=== PATIENT | female | born 1965 | race Caucasian/White ===

== ENCOUNTER 2019-05-13 21:13 | Inpatient (IN) | payer OTHER ==
[~2019-05-13] VITALS: Ht 175.3 cm; Wt 90.7 kg
--- NOTE | ~2019-05-13 | CON ---
[address] [address] CONSULTATION Name: LULY LAKHANI Room: [address] IN .R.#: [id number] Admission: 05/13/19 Attend Phys: Jo Cardenas MD Discharge: Date of : 69 Report #: [id number] THIS REPORT FOR: //name// CC: [facility] physician/PCP Jo Cardenas DATE OF SERVICE: 05/14/2019 INFECTIOUS DISEASE CONSULTATION ATTENDING PHYSICIAN: Jo Cardenas MD REASON FOR EVALUATION: Right lower extremity venous stasis insufficiency complicated by dermatitis ulcer, now with skin and soft tissue infection with cellulitis. HISTORY OF PRESENT ILLNESS: Chart reviewed, patient examined. This is a 53-year-old known history of illicit drug use, who developed a small lesion over the medial aspect proximal to the malleolus involving the right lower extremity, developed an area. She has an increase in size and depth ulcerated, was associated with significant amount of pain. She denies any antecedent injury. She has not had previous similar type episodes. Notes varicose veins, does intermittently wear compression. Urinalysis was otherwise unremarkable. Lactic acid 1.1. Positive drug screen for methamphetamine. Imaging of the tibia fibula was otherwise unremarkable for any bony changes. She is empirically started on therapy with ceftriaxone and vancomycin. ALLERGIES: LISTED TO AMOXICILLIN AND SULFA, BOTH WHICH SHE STATES CAUSES RASHES. CURRENT MEDICATIONS: Include enoxaparin, vancomycin, famotidine, ibuprofen, ondansetron, tramadol, lorazepam, ceftriaxone, ketorolac. PAST MEDICAL HISTORY: Previous hysterectomy and laparoscopic evaluation for lysis of adhesions. SOCIAL HISTORY: No illicit drug use. Smokes half pack a day for 30 years. No history of significant ethanol use. FAMILY HISTORY: Noncontributory. REVIEW OF SYSTEMS: Denies significant pulmonary or gastrointestinal related complaints. She has had minor anorexia. She did have shaking chills, as well. Otherwise, unremarkable 10-point [place] [address] CONSULTATION Name: LULY LAKHANI Room: [address] IN [facility]#: [id number] Admission: 05/13/19 Attend Phys: Jo Cardenas MD Discharge: Date of : 69 Report #: [id number] PHYSICAL EXAMINATION: GENERAL: Appears somewhat chronically ill, undernourished. She is in distress, [id number] degree. VITAL SIGNS: Temperature 98.8, pulse 77, respirations 18, blood pressure 120/78. SKIN: Warm. HEENT: Normocephalic. Extraocular muscles intact. NECK: Supple. LUNGS: Clear to auscultation. Somewhat diminished. HEART: Regular rhythm. I do not appreciate murmur. ABDOMEN: Soft, mildly obese, nontender. There are no peritoneal signs. EXTREMITIES: Right lower extremity medial aspect, distal pretibial site proximal to the malleolus has an ulceration that extends into the subcutaneous tissue. There is moderate degree of inflammation noted. There is no particular odor, no purulence. It is quite tender. Distal pulses are palpable. GENITOURINARY AND RECTAL: Deferred. LABORATORY DATA: CBC: White count of 4.9, H and H 11.7 and 34.8, platelets of 295. Differential unremarkable. Urinalysis unremarkable. Electrolytes: Sodium 140, potassium 3.5, chloride 104, bicarbonate is 31, anion gap of 5, BUN and creatinine 12 and 0.9, glucose of 158. AST of 13, ALT of 21. Albumin of 3.1, total protein of 8.5. Lactic acid 1.1. Drug screen positive for amphetamine, methamphetamine. ASSESSMENT: Right lower extremity inflammatory eruption, likely multifactorial. I think she does have a component of venous stasis insufficiency, dermatitis and now a new onset ulcer, likely secondarily infected. We will continue empiric therapy, presuming skin related. We will try to culture the wound and add compression. Continue elevation as directed. By: [id number] Noriega MD /nt
[2019-05-13 10:45] VITALS: BP 139/82
[~2019-05-13 21:13] MED LIST: ALAVERT10 MG PO; COLACE 100 MG100 MG PO; CYMBALTA30 MG PO; CYMBALTA60 MG PO; FLONASE; HYDROCODON-ACE1 EAC8 PO; METHADONE HCL5 MG PO; VENTOLIN HFA INH8 GM IH
[2019-05-13 21:18] VITALS: BP 143/88
[2019-05-13 22:07] LABS: ABSOLUTE EOSINOPHILS 0.1 thou/uL (0.0-0.7); ABSOLUTE LYMPHOCYTES 1.5 thou/uL (0.8-5.3); ABSOLUTE MONOCYTES 0.4 thou/uL (0.0-1.2); ABSOLUTE NEUTROPHILS 2.9 thou/uL (1.6-8.1); BASOPHILS 0.7 %; EOSINOPHILS 2.5 %; HEMATOCRIT 34.8 % (37.0-47.0); HEMOGLOBIN 11.7 gm/dL (12.0-15.0); LYMPHOCYTES 30.9 %; MCH 30.3 pg (26.0-34.0); MCHC 33.6 g/dL (28.0-37.0); MCV 90.2 fL (80.0-100.0); MONOCYTES 7.2 %; MPV 7.8 fl. (7.2-11.1); NUCLEATED RBCS 0 /100WBC; PLATELET COUNT* 295 thou/uL (150-400); POLYS 58.7 %; RBC 3.85 mil/uL (4.20-5.00); RDW-CV 13.3 % (10.5-14.5); WBC 4.9 thou/uL (4.0-11.0)
--- NOTE | 2019-05-13 22:10 | NUR ---
LET SOLUTION APPLIED ORDERED. NON ADHERANT DRESSING ABD AND KERLIX APPLIED TO RIGHT LEG.
--- NOTE | 2019-05-13 22:10 | NUR ---
LET APPLIED TO LEFT LEG ORDERED AND WOUND COVERED WITH NON ADHERANT DRESSING ABD AND KERLIX.
[2019-05-13 22:11] LABS: URINE BILIRUBIN NEGATIVE (Negative); URINE BLOOD NEGATIVE (Negative); URINE CLARITY CLEAR; URINE COLOR YELLOW; URINE GLUCOSE-RANDOM 1+ (Negative); URINE KETONES TRACE (Negative); URINE LEUKOCYTES-REFLEX NEGATIVE (Negative); URINE NITRITE-REFLEX NEGATIVE (Negative); URINE PROTEIN NEGATIVE (Negative); URINE SPECIFIC GRAVITY >= 1.030 (1.005-1.030); URINE UROBILINOGEN 0.2 E.U./dl (0.2-1.0)
[2019-05-13 22:14] LABS: CALCIUM 8.7 mg/dL (8.5-10.1); CREATININE 0.9 mg/dL (0.6-1.3); POTASSIUM 3.5 mmol/L (3.5-5.1)
[2019-05-13 22:19] LABS: ALBUMIN 3.1 g/dL (3.4-5.0); TOTAL BILIRUBIN 0.1 mg/dL (<0.1-1.0); TOTAL PROTEIN 8.5 g/dL (6.4-8.2)
[2019-05-13 22:27] VITALS: BP 128/78
[2019-05-13 22:28] LABS: AMP/METHAMP POSITIVE (Negative); BARBITURATES Negative (Negative); BENZODIAZEPINES Negative (Negative); COCAINE Negative (Negative); METHADONE Negative (Negative); OPIATES Negative (Negative); PCP Negative (Negative); THC Negative (Negative)
--- NOTE | 2019-05-14 06:24 | NUR ---
PATIENT ARRIVED ON UNIT LAST NIGHT 2229. SHE WAS REPORTING THAT THE DRESSING WAS EXTREMELY UNCOMFORTABLE SO I REMOVED IT AND WRAPPED IT AGAIN IN A NEW ABD PAD AND GUAZE WITH NO TAPE TOUCHING SKIN SHE REPORTS ADHESIVES ARE IRRITATING TO HER SKIN. SHE WAS GIVEN SCHEDULED TORODOL FOR PAIN AND ABX WAS ADMINISTERED IV THROUGHOUT SHIFT. WOUND NURSE IS CONSULTED TO SEE THIS PATIENT TODAY. SHE SLEPT THROUGHOUT THE SHIFT.
[2019-05-14 08:00] VITALS: BP 119/76
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
--- NOTE | 2019-05-14 12:29 | 2DMMODE ---
[place] [address] 2 D/M-MODE ECHOCARDIOGRAM Name: LULY LAKHANI Thalia Room: [address] IN [facility]#: [id number] Admission: 05/13/19 Attend Phys: Jo Cardenas MD Discharge: Date of : 69 Date of Service: 05/14/19 1229 Report #: [id number] THIS REPORT FOR: //name// APPROVED REPORT Study performed: 05/14/2019 10:58:58 EXAM: Comprehensive 2D, Doppler, and color-flow Echocardiogram Patient Location: In-Patient Room #: 108 Status: routine BSA: 2.07 HR: 62 bpm BP: 119/76 mmHg Rhythm: NSR Other Information Study Quality: Good Indications edema, drug use 2D Dimensions IVSd: 10.22 (7-11mm) LVDd: 43.22 mm PWd: 9.98 (7-11mm) Ascending Ao: 25.82 (22-36mm) LVDs: 24.58 (25-40mm) Aortic Root: 28.76 mm Volumes Left Atrial Volume (Systole) LA ESV Index: 24.10 mL/m2 Aortic Valve AoV Peak Saad.: 1.34 m/s AO Peak Gr.: 7.16 mmHg LVOT Max P.42 mmHg AO Mean Gr.: 3.55 mmHg LVOT Mean P.15 mmHg LVOT Max V: 1.16 m/s AO V2 VTI: 25.34 cm LVOT Mean V: 0.65 m/s LVOT V1 VTI: 26.53 cm Mitral Valve E/A Ratio: 1.37 MV Decel. Time: 211.34 ms MV E Max Saad.: 0.95 m/[place] [id number] 2 D/M-MODE ECHOCARDIOGRAM Name: LULY LAKHANI Room: [address] IN .R.#: [id number] Admission: 05/13/19 Attend Phys: Jo Cardenas MD Discharge: Date of : 69 Date of Service: 05/14/19 1229 Report #: [id number] MV PHT: 61.29 ms MVA (PHT): 3.59 cm2 TDI E/Lateral E': 7.31 E/Medial E': 7.31 Medial E' Saad.: 0.13 m/s Lateral E' Saad.: 0.13 m/s Pulmonary Valve PV Peak Saad.: 0.95 m/s PV Peak Gr.: 3.59 mmHg Left Ventricle The left ventricle is normal size. There is normal LV segmental wall motion. There is normal left ventricular wall thickness. Left ventricular systolic function is normal. The left ventricular ejection fraction is within the normal range. LVEF is 60-65%. The left ventricular diastolic function is normal. Right Ventricle The right ventricle is normal size. The right ventricular systolic function is normal. Atria The left atrium size is normal. The right atrium size is normal. Aortic Valve The aortic valve is normal in structure. No aortic regurgitation is present. There is no aortic valvular stenosis. Mitral Valve The mitral valve is normal in structure. Trace mitral regurgitation. No evidence of mitral valve stenosis. Tricuspid Valve The tricuspid valve is normal in structure. Trace tricuspid regurgitation. Pulmonic Valve The pulmonary valve is normal in structure. There is no pulmonic valvular regurgitation. Great Vessels The aortic root is normal in size. IVC is normal in size and collapses >50% [place] [id number] 2 D/M-MODE ECHOCARDIOGRAM Name: LULY LAKHANI Thalia Room: [address] IN .R.#: [id number] Admission: 05/13/19 Attend Phys: Jo Cardenas MD Discharge: Date of : 69 Date of Service: 05/14/19 1229 Report #: [id number] Pericardium There is no pericardial effusion. <Conclusion> Left ventricular systolic function is normal. The left ventricular ejection fraction is within the normal range. <ELECTRONICALLY SIGNED> By: Antonio Thurston MD, [facility] 05/14/19 1229 D: 07/ 1229 Antonio Thurston MD, FACC /INF
[2019-05-14 16:41] VITALS: BP 104/59
--- NOTE | 2019-05-14 18:16 | NUR ---
WOUND NURSE: PATIENT SEEN TO ADDRESS VENOUS LEG ULCER ON THE RIGHT MEDIAL LEG ABOVE THE ANKLE. PRESENT WITH YELLOW SLOUGH TISSUE IN >90% OF THE WOUND ALONG WITH YELLOW TO BEIGE STRINGY FIBROUS MATERAL. WOUND EDGES ARE ATTACHED TO THE WOUND BASE AND PERIWOUND AREA WITH RUBOR AND MILD EDEMA. WOUND IS PAINFUL TO TOUCH PER THE PATIENT. THERE IS A MODERATE AMOUNT OF YELLOW DRAINAGE NOTED FROM THE WOUND. CLEANSED WITH SOAP AND WATER, RINSED WITH WATER, THEN PATTED DRY. APPLIED AQUACEL AG UNDER BORDERED FOAM DRESSING TO WOUND. APPLIED SINGLE LAYER TUBIGRIPS TO BLE SIZE E FOR EDEMA CONTROL. PATIENT INSTRUCTED ON MEASURES TO PROMOTE HEALING AND PREVENT FURTHER COMPLICTIONS. PATIENT STATES SHE UNDERSTANDS.
[2019-05-14 20:00] VITALS: BP 123/75
[2019-05-15] VITALS: BP 137/78
[2019-05-15 02:06] LABS: GLYCOHEMOGLOBIN (HGB A1C) 7.8 % (4.8-5.6)
[2019-05-15 04:11] LABS: HEMATOCRIT 30.7 % (37.0-47.0); HEMOGLOBIN 10.1 gm/dL (12.0-15.0); MCH 29.8 pg (26.0-34.0); MCHC 32.8 g/dL (28.0-37.0); MPV 8.2 fl. (7.2-11.1); RBC 3.38 mil/uL (4.20-5.00); RDW-CV 13.5 % (10.5-14.5); WBC 4.9 thou/uL (4.0-11.0)
[2019-05-15 04:15] VITALS: BP 150/85
[2019-05-15 04:30] LABS: ALBUMIN 2.3 g/dL (3.4-5.0); CALCIUM 7.8 mg/dL (8.5-10.1); CREATININE 0.7 mg/dL (0.6-1.3); MAGNESIUM 1.8 mg/dL (1.8-2.4); POTASSIUM 3.9 mmol/L (3.5-5.1); TOTAL BILIRUBIN 0.1 mg/dL (<0.1-1.0); TOTAL PROTEIN 6.6 g/dL (6.4-8.2)
--- NOTE | 2019-05-15 06:10 | NUR ---
Oriented x 4 but drowsy this shift. She does awaken easily. She was up independently in the room. Dressing to RLE is dry and intact. Vitals have been stable. This am her magnesium is low and is being replaced per protocol. She has scheduled ibuprofen and this has controlled her pain.
[2019-05-15 09:00] VITALS: BP 147/80
--- NOTE | 2019-05-15 11:13 | NUR ---
SW met with pt to discuss resources for Xarelto and SW provided the 30 free trial card and recommended pt continue with rx assist program after the 30 days to attempt to receive at reduced cost. Pt plans to continue to attempt to apply for Medicaid. Pt emotional about pt social situation; SW discussed pt not alone and discussed pt sister supportive as well as plans for drug rehab at tx.
--- NOTE | 2019-05-15 13:35 | NUR ---
AT APROXIMATELY 0830 WHEN APPLYING NICOTNE PATCH PATIENT STATED THAT SHE WANTED TO HAVE A CIGARETTE. I INFORMED HER THAT WE ARE A SMOKE FREE FACILITY AND THAT SHE SHOULD NOT SMOKE WITH THE NICOTINE PATCH ON. AT ABOUT 1030 PATIENT SAID SHE WANTED TO GO FOR A WALK. SHE WAS TOLD THAT SHE COULD WALK IN THE HALLWAY ON OUR UNIT BUT BECAUSE SHE HAD AN IV RUNNING SOMEONE NEEDED TO BE WITH HER IF SHE LEFT THE UNIT. PATIENT STATED SHE WANTED TO OFF UNIT. RADHA ASKEW WAS ASKED TO WALK WITH PATIENT. PATIENT WAS TOLD TECH WAS GOING TO FINISH WHAT SHE WAS DOING AND THEN WOULD TAKE HER FOR A WALK. PATIENT END UP LEAVING UNIT AND WAS FOUND OUTSIDE SMOKING. NURSING DOOR TO DOOR FUNDRAISING COLLECTOR TALKED TO PATIENT ABOUT OUR SMOKING POLICY.
--- NOTE | 2019-05-15 15:30 | NUR ---
ASSUMED CARE OF PATIENT AT 1500. RECEIVED REPORT FROM KASANDRA PAULINO. AGREE WITH PREVIOUS ASSESSMENT AND CHARTING.
--- NOTE | 2019-05-15 18:17 | NUR ---
PATIENT ALERT AND ORIENTED X 4. VITAL SIGNS STABLE ON ROOM AIR. UP INDEPENDENTLY IN ROOM AND AMBULATING IN HALLWAY. IV PATENT WITH FLUIDS INFUSING. PAIN BEING MANAGED WITH PO MEDICATION. DENIES NAUSEA. TUBI DOCENT COORDINATOR IN PLACE BILATERALLY. HOURLY ROUNDS MAINTAINED THROUGHOUT THE SHIFT. CALL LIGHT WITHIN REACH. NURSING WILL CONTINUE TO MONITOR.
[2019-05-15 18:46] VITALS: BP 146/84
[2019-05-15 21:55] VITALS: BP 135/77
--- NOTE | 2019-05-16 05:22 | NUR ---
PATIENT SLEPT THROUGH SHIFT. SHE REQUESTED ON PAIN MED HER RATING WAS 7/10. SHE WAS ABLE TO SLEEP COMFORTABLE AFTER/ NO NEW SYMPTOMS OF PAIN TO REPORT
[2019-05-16 08:15] VITALS: BP 118/69
--- NOTE | 2019-05-16 10:00 | NUR ---
PATIENT LEFT UNIT UNATTENDED, AFTER THIS NURSE INFORMED PATIENT THAT SHE COULD NOT LEAVE THE UNIT WITH AN IV. SECURITY CALLED. TEMPLATE CLERK, JEANE, FOUND PATIENT IN HALLWAY AND BROUGHT PATIENT BACK TO UNIT. PATIENT WAS INFORMED THAT SHE COULD WALK AROUND OUR UNIT, BUT WAS NOT ALLOWED TO LEAVE THE UNIT LONG SHE HAS IV ACCESS.
--- NOTE | 2019-05-16 11:30 | NUR ---
THIS NURSE AND CO-WORKERS, LG (WOOD PROCESSING WORKER) AND LAURA (SENIOR RELATIONSHIP MANAGER), SMELLED CIGARETTE SMOKE IN THE HALLWAY. UPON INVESTIGATION, THE SMELL WAS COMING FROM THIS PATIENT'S ROOM. SECURITY AND EXPLOSIVE OPERATOR SUPERVISOR, JEANE, NOTIFIED. SECURITY AND EXPLOSIVE OPERATOR SUPERVISOR TALKED TO PATIENT AND REMINDED PATIENT THAT SMOKING WAS NOT ALLOWED ON HOSPITAL GROUNDS. PATIENT STATED THAT SHE HAD NOT BEEN SMOKING.
--- NOTE | 2019-05-16 13:14 | NUR ---
PATIENT CAME TO THE NURSE'S STATION WITH HER BECAUSE HER IV PUMP WAS BEEPING. UPON INVESTIGATION, THE J-LOOP OF PATIENT'S IV WAS COMPLETELY BACKED UP WITH BLOOD, EVEN THOUGH PATIENT WAS HOOKED UP TO ANTIBIOTICS THAT HAD BEEN RUNNING FOR OVER AND HOUR. UNHOOKED PATIENT'S IV LINE AND FLUSHED IV WITH NO COMPLICATIONS. REHOOKED IV AND RESTARTED ANTIBIOTICS. REMINDED PATIENT NOT TO MESS WITH THE IV. PATIENT THEN ASKED TO GO SIT IN THE WAITING ROOM WITH . INFORMED PATIENT THAT SHE COULD NOT LEAVE THE UNIT WHILE HOOKED UP TO THE IV. PATIENT STATED THAT SHE FELT LIKE WE WERE "CONFINING HER." AND STARTED CRYING. PATIENT WENT BACK TO HER ROOM WITH HER .
[2019-05-16 16:32] VITALS: BP 132/83
--- NOTE | 2019-05-16 18:09 | NUR ---
PATIENT ALERT AND ORIENTED X 4. VITAL SIGNS STABLE ON ROOM AIR. AFEBRILE. UP INDEPENDENTLY IN ROOM AND AMBULATING IN HALLWAY. REMINDED PATIENT TO STAY ON UNIT. IV PATENT AND SALINE LOCKED. TUBI-CORRECTIONAL PROBATION OFFICER ON BILATERALLY TO LOWER EXTREMETIES. PAIN BEING MANAGED WITH PO MEDICATION. DENIES NAUSEA. PRN ATIVAN GIVEN FOR ANXIETY AND COMFORT. HOURLY ROUNDS MAINTAINED THROUGHOUT THE SHIFT. CALL LIGHT WITHIN REACH. NURSING WILL CONTINUE TO MONITOR.
[2019-05-16 21:18] VITALS: BP 140/83
[2019-05-17 04:53] LABS: HEMOGLOBIN 10.3 gm/dL (12.0-15.0); MCH 29.2 pg (26.0-34.0); MCHC 32.1 g/dL (28.0-37.0); MCV 90.9 fL (80.0-100.0); MPV 8.5 fl. (7.2-11.1); RBC 3.52 mil/uL (4.20-5.00); RDW-CV 13.3 % (10.5-14.5); WBC 5.4 thou/uL (4.0-11.0)
[2019-05-17 05:13] LABS: ALBUMIN 2.3 g/dL (3.4-5.0); CREATININE 0.7 mg/dL (0.6-1.3); MAGNESIUM 1.9 mg/dL (1.8-2.4); POTASSIUM 4.5 mmol/L (3.5-5.1); TOTAL BILIRUBIN 0.1 mg/dL (<0.1-1.0); TOTAL PROTEIN 6.5 g/dL (6.4-8.2)
--- NOTE | 2019-05-17 05:58 | NUR ---
PATIENT SLEPT THROUGH THE SHIFT. SHE HAD FAMILY VISIT TILL 1030. I GAVE HER ONE TAB HYDROCODONE BEFORE SHE WENT TO SLEEP. KEPT FLUIDS GOING ALL NIGHT AND ABX. NO NEW PAIN OR WORSENING OF SYMPTOMS TO REPORT. SHE DID NOT LEAVE HER ROOM EITHER.
--- NOTE | 2019-05-17 14:13 | NUR ---
Nutrition: Pt admitted with RLE cellulitis. H/o meth abuse, DM. Pt stated that she lost 20-30# past few months d/t her leaving and "not having a house or food." Pt was tearful. Offered her social support by sending in a CW, but pt stated she was going to rehab at discharge and "would be taken care of there." She stated she is eating fine now that she is in here. She is not worried about her wt loss now that she is getting help. Current wt: 200#. Alb 2.3, prealb 17.4. Mild nutrition risk.
--- NOTE | 2019-05-17 16:17 | NUR ---
Following for d/c planning needs. Received telephone call from pt's sister Matilde ([phone]). She said they had made arrangements for pt to go to [facility] in [place] for detox and inpatient drug treatment. Since the patient has not used drugs for 2 days, she no longer qualifies for detox at [facility], and they currently have a wait list until June for their inpatient drug treatment program. They are state funded and have transitional living and apartment living after d/c from drug treatment inpatient program. Called H[facility] Cuellar in [facility]. They have a wait list for the uninsured. [facility] is not state funded and would be $11,000 for a month of treatment. [facility] has no beds available. Called [facility] and they have a wait list for state funded (uninsured patients) beds at this time. [facility] [place] is for [place] residents only. [facility] has inpatient drug treatment programs and have beds available for $10,500 for 25 days, with no transitional living or aftercare except outpatient. Called Torin [facility]ellar ([phone]) in [facility] and left message. Sister and pt would prefer pt go to facility outside the area so that pt would be away from drug contacts in the area. Will remain available to assist as needed.
--- NOTE | 2019-05-17 16:19 | NUR ---
ASSESSMENT COMPLETE. PT GIVEN PRN PAIN MEDICATION ONCE THIS MORNING. PT DENIES N/V. TOLERATING MEALS. PT ACCU CHECK [facility], CURRENTLY TAKES METFORMIN FOR SUGAR CONTROL. PT IS UP AD [place] WITH STEADY GAIT. REFUSING IV FLUIDS. IV ABX GIVEN ORDERED. DRESSING TO RIGHT LEG INTACT. SEE ASSESSMENT AND VITALS FOR OTHER DETAILS. CALL LIGHT WITHIN REACH, WILL CONTINUE PLAN OF CARE
[2019-05-17 16:30] VITALS: BP 146/72
[2019-05-17 18:11] LABS: HIV-1/HIV-2 ANTIBODY Non Reactive (Non Reactive)
[2019-05-17 20:58] VITALS: BP 143/65
--- NOTE | 2019-05-18 06:22 | NUR ---
PATIENT WAS EXREMEMLY ANXIOUS AT BEGINNING OF SHIFT AND ALSO REPORTED PAIN 8/10 IN HER LRE. I GAVE HER LORAZEPAM AND HYDROCODONE BEFORE BED. SHE WAS ABLE TO REST THROUGHOUT THE NIGHT. I MADE HER ROOM QUIET AND DARK SO THAT SHE COULD REST. SHE WOKE UP 0600 AND REQUESTED MORE PAIN MEDS. I GAVE HER 2 TABS OF HYDROCODONE AND HER SCHEDULED IBRUPROFEN,
[2019-05-18 07:35] LABS: HEPATITIS B SURFACE AG Negative (Negative)
[2019-05-18 07:45] VITALS: BP 142/73
[2019-05-18 10:05] VITALS: BP 142/73
[2019-05-18] MEDS ORDERED: GLUCOPHAGE500 MG PO (10:05)
[2019-05-18] MEDS ORDERED: SSD25 GM TOP (10:05)
[2019-05-18] MEDS ORDERED: XARELTO20 MG PO (10:05)
[2019-05-18] MEDS ORDERED: IBUPROFEN 600600 M1 PO (10:05)
[2019-05-18] MEDS ORDERED: KEFLEX500 M1 PO (10:05)
[2019-05-18] MEDS ORDERED: TRAMADOL 50 MG50 MG PO (10:05)
[2019-05-18 10:31] VITALS: BP 142/73
--- NOTE | 2019-05-18 12:39 | NUR ---
PT GIVEN DISCHARGE INFORMATION, PRESCRIPTIONS, AND CARE NOTES. IV REMOVED. DRESSING CHANGE ITEMS GIVEN TO PT. DRESSING CHANGED TODAY. CAB VOUCHER CALLED. PT LEFT AMBULATORY WITH NURSING STAFF TO HOME.
[2019-05-18 13:17] VITALS: BP 142/73
--- NOTE | 2019-05-18 13:22 | NUR ---
PT WISHES TO NOT RECEIVE ANY INFORMATION REGARDING THEIR STAY, DIAGNOSIS, OR CARE!
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
== END 2019-05-18 13:23 | disposition home or self-care (01) | DRG 603 ==
LOC: M.ERS 21:13 → M.ORTHSURG 21:44 → M.TBA-ER 21:44 → M.ORTHSURG 22:38
PROVIDERS: Internal Medicine; Internal Medicine Infectious Disease; Physician Assistant; ADMIT Family Medicine
DX: L03.115 Cellulitis of right lower limb (principal); F17.210 Nicotine dependence, cigarettes, uncomplicated; F15.10 Other stimulant abuse, uncomplicated; I83.11 Varicose veins of right lower extremity with inflammation; E11.9 Type 2 diabetes mellitus without complications; Z79.84 Long term (current) use of oral hypoglycemic drugs; Z88.1 Allergy status to other antibiotic agents; Z88.2 Allergy status to sulfonamides; Z90.710 Acquired absence of both cervix and uterus